=== PATIENT | female | born 1955 | race Caucasian/White ===

== ENCOUNTER 2017-12-14 08:33 | Day surgery (SDC) | payer OTHER ==
[~2017-12-14] VITALS: Ht 162.6 cm; Wt 56.8 kg
[~2017-12-14 08:33] MED LIST: BETA.05TO; ERGO400; Estrace Vagin42.5 GM; Hair, Skin & N1 EACH; MAGCIT300 PO
== END 2017-12-14 10:53 | disposition home or self-care (01) ==
LOC: ORSCSDS 08:33
PROVIDERS: Internal Medicine Gastroenterology
PROC: 0DBH8ZX Excision of Cecum, Via Natural or Artificial Opening Endoscopic, Diagnostic (ICD-10-PCS; principal; 2017-12-14 09:45)
DX: Z86.010 Personal history of colon polyps (principal); D12.0 Benign neoplasm of cecum; K57.30 Diverticulosis of large intestine without perforation or abscess without bleeding
CPT/HCPCS: 88305

== ENCOUNTER → 2018-05-30 | Outpatient (CLI) | payer OTHER ==
[2018-06-01 15:08] LABS: HPV 16 Negative (Negative); HPV 18 Negative (Negative); HPV OTHER HR TYPES Negative (Negative)
== END | disposition home or self-care (01) ==
LOC: LAB 19:09 → LAB SHORT 19:09
PROVIDERS: Obstetrics & Gynecology Gynecology
DX: Z12.4 Encounter for screening for malignant neoplasm of cervix (principal)
CPT/HCPCS: 87624; G0123

== ENCOUNTER → 2019-08-07 | Outpatient (CLI) | payer OTHER ==
[2019-08-09 15:07] LABS: HPV 16 Negative (Negative); HPV 18 Negative (Negative); HPV OTHER HR TYPES Negative (Negative)
== END | disposition home or self-care (01) ==
LOC: LAB 14:54 → LAB SHORT 14:54
PROVIDERS: Obstetrics & Gynecology Gynecology
DX: Z12.4 Encounter for screening for malignant neoplasm of cervix (principal)
CPT/HCPCS: 87624; G0123

== ENCOUNTER 2022-05-24 09:43 | Day surgery (SDC) | payer MEDICARE, OTHER ==
[~2022-05-24] VITALS: Ht 162.6 cm; Wt 55.0 kg
--- NOTE | 2022-05-24 13:01 | NUR ---
05/24/22 1301 Leti Lombardi PT. VERBALIZED LEFT HAND ATTEMPT IV SORE. OBSERVED TOP OF LEFT HAND BRUISING & APPROX. 2 IN HEMATOMA UNDER GAUZE & PAPER TAPE. PAPER TAPE & GAUZE REMOVED & GAUZE PLACED WITH COBAN FOR PRESSURE. PT. INSTRUCTED SHE COULD USE A COLD OR WARM PACK IF NEEDED FOR COMFORT.
== END 2022-05-24 12:24 | disposition home or self-care (01) ==
LOC: ORSCSDS 09:43
PROVIDERS: Internal Medicine Gastroenterology
PROC: 0DBN8ZX Excision of Sigmoid Colon, Via Natural or Artificial Opening Endoscopic, Diagnostic (ICD-10-PCS; principal; 2022-05-24 11:00)
PROC: 0DBH8ZX Excision of Cecum, Via Natural or Artificial Opening Endoscopic, Diagnostic (ICD-10-PCS; principal; 2022-05-24 11:00)
DX: Z12.11 Encounter for screening for malignant neoplasm of colon (principal); D12.5 Benign neoplasm of sigmoid colon; D37.4 Neoplasm of uncertain behavior of colon; K57.30 Diverticulosis of large intestine without perforation or abscess without bleeding; Z86.010 Personal history of colon polyps; Z85.3 Personal history of malignant neoplasm of breast; Z79.899 Other long term (current) drug therapy
CPT/HCPCS: 88305; J2704